=== PATIENT | female | born 1965 | race Hispanic/Latino ===

== ENCOUNTER 2016-11-30 14:11 | Emergency (ER) | payer OTHER ==
--- NOTE | 2016-11-30 15:21 | Emergency Department Report ---
Chief Complaint: Abdominal Pain Stated Complaint: ABD PAIN Time Seen by Provider: 11/30/16 15:06 - HPI History of Present Illness: 51-year-old female presents today with abdominal pain 3 days. Patient has history of colon resection and diverticulitis. Patient has been sent here by Dr. Fermin for a CT scan to rule out intestinal blockage and hernia. Positive for nausea, vomiting, shortness of breath. Denies fever, chills, chest pain. - ROS Review of Systems: Per HPI - Exam Vital Signs: Vital Signs 11/30/16 14:55 Temperature 97.6 F Pulse Rate 87 Respiratory 18 Rate Blood Pressure 153/108 O2 Sat by Pulse 100 Oximetry Physical Exam: General: 52-year-old female in no acute distress. Well-developed, well- nourished. CV: Regular rate and rhythm. Lungs: Clear to auscultation bilaterally. Abdomen: Mass palpated over the left lower quadrant, tender to touch. Positive for guarding. MSE screening note: Focused history and physical exam performed. Due to findings the following was ordered: ED Medical Decision Making - Lab Data Result diagrams: 11/30/16 15:16 ED Disposition for MSE Condition: Stable Instructions: Abdominal Pain (ED)
[2016-11-30 15:27] LABS: Basophils % (Auto) 0.6 % (0.0-1.8); Eosinophils % (Auto) 1.2 % (0.0-4.3); Hematocrit 44.2 % (30.3-42.9); Hemoglobin 14.4 gm/dl (10.1-14.3); Mean Corpuscular HGB Conc 33 % (30-34); Mean Corpuscular Hemoglobin 30 pg (28-32); Mean Corpuscular Volume 92 fl (79-97); Platelet Count 388 K/mm3 (140-440); Red Blood Count 4.82 M/mm3 (3.65-5.03); Red Cell Distribution Width 14.8 % (13.2-15.2); White Blood Count 10.9 K/mm3 (4.5-11.0)
[2016-11-30 15:45] LABS: Amylase 27 units/L (27-131); BUN/Creatinine Ratio 12.85; Blood Urea Nitrogen 9 mg/dL (7-17); Calcium 8.9 mg/dL (8.4-10.2); Carbon Dioxide 25 mmol/L (22-30); Glucose 92 mg/dL (65-100); Lipase 28 units/L (13-60)
[2016-11-30 15:46] LABS: Anion Gap 20 mmol/L; Chloride 101.9 mmol/L (98-107); Potassium 4.1 mmol/L (3.6-5.0); Sodium 143 mmol/L (137-145)
--- NOTE | 2016-11-30 16:02 | Cat Scan Report ---
CT OF THE ABDOMEN AND PELVIS WITHOUT CONTRAST HISTORY: Abdominal pain. TECHNIQUE: Helical CT without contrast. Sagittal and coronal reformatted images. FINDINGS: Within the limits of a noncontrast exam, the abdominal and pelvic viscera are within normal limits. Cholecystectomy changes. The liver, biliary system, pancreas, spleen, kidneys, adrenal glands and bladder are unremarkable. The bowel loops are normal caliber and wall thickness. Normal appendix. The aorta is normal caliber. No ascites, bulky adenopathy or inflammatory changes. The uterus and adnexa are within normal limits. The lung bases are clear. Normal heart size. No suspicious bony lesion. IMPRESSION: Unremarkable noncontrast CT of the abdomen and pelvis.
[2016-11-30 16:21] LABS: Bacteria,Urine 1+ /HPF (Negative); Bilirubin,Urine NEG (Negative); Blood,Urine NEG (Negative); Ketones,Urine TR mg/dL (Negative); Leukocyte Esterase,Urine NEG (Negative); Mucus,Urine 2+ /HPF; Nitrite,Urine NEG (Negative); Protein,Urine <15 mg/dL mg/dL (Negative); Urobilinogen,Urine < 2.0 mg/dL (<2.0)
[2016-11-30] MEDS ORDERED: PERCOCET 5/325 PO ONE (21:52)
[2016-11-30] MEDS ORDERED: ZOFRAN ODT PO ONE (21:52)
--- NOTE | 2016-11-30 22:21 | Emergency Department Report ---
ED Abdominal Pain HPI - General Chief Complaint: Abdominal Pain Stated Complaint: ABD PAIN Time Seen by Provider: 11/30/16 15:06 Source: patient Mode of arrival: Ambulatory Limitations: No Limitations - History of Present Illness Initial Comments: 51-year-old female with a past medical history of diverticulitis requiring colon resection, previous tummy tuck and cholecystectomy presents to the hospital complaining of periumbilical and left-sided abdominal pain intermittent since tummy tuck surgery in September. Patient states she has been wearing a binder which seems to help pain. Patient stopped when a binder last week reports that her abdomen is more distended and she is experiencing more pain. Pain is generalized, sharp, rated 8/10 in intensity. Worse with movement , palpation, and food intake. No alleviating factors. She is not currently taking any medications. Positive nausea without vomiting. Poor by mouth intake reported. Patient sent by PMD Dr. Fermin for workup Severity scale (0 -10): 4 - Related Data Previous Rx's Medication Instructions Recorded Last Taken Type Ondansetron [Zofran Odt] 4 mg PO Q8HR #20 tab.rapdis 11/30/16 Unknown Rx Docusate Sodium [Colace] 100 mg PO BID PRN #20 capsule 12/01/16 Unknown Rx Oxycodone HCl/Acetaminophen 1 each PO Q6HR PRN #20 tablet 12/01/16 Unknown Rx [Percocet 10/325 mg] Polyethylene Glycol 3350 [Miralax 17 gm PO QDAY PRN #10 packet 12/01/16 Unknown Rx 3350] Allergies Allergy/AdvReac Type Severity Reaction Status Date / Time amoxicillin trihydrate Allergy Unknown Verified 04/05/15 04:49 [From Augmentin] onion Allergy Anaphylaxis Verified 04/05/15 04:49 potassium clavulanate Allergy Unknown Verified 04/05/15 04:49 [From Augmentin] ED Review of Systems ROS: Stated complaint: ABD PAIN Other details as noted in HPI Comment: All other systems reviewed and negative Other: Constitutional: No fevers chills Eyes: No eye pain visual changes ENT: No ear pain or throat pain Neck: Denies pain Respiratory: Denies cough wheezing shortness of breath Cardiovascular: Denies chest pain, palpitations, syncope GI: As per HPI : Denies dysuria Musculoskeletal: Denies back pain, joint swelling Skin: Denies rash, lesions, erythema Neurologic: Denies headache, numbness, weakness Psychiatric: Denies suicidal ideation, hallucinations Hematological/lymphatic: Denies easy bruising, lymphadenopathy ED Past Medical Hx - Past Medical History Previous Medical History?: Yes Hx Congestive Heart Failure: No Hx Diabetes: No Hx Asthma: No Hx COPD: No - Surgical History Past Surgical History?: Yes Hx Cholecystectomy: Yes Additional Surgical History: Colon resection, Epigastric surgery, Tummy tuck - Social History Smoking Status: Former Smoker Substance Use Type: Alcohol, Prescribed - Medications Home Medications: Home Medications Medication Instructions Recorded Confirmed Last Taken Type Ondansetron [Zofran Odt] 4 mg PO Q8HR #20 tab.rapdis 11/30/16 Unknown Rx Docusate Sodium [Colace] 100 mg PO BID PRN #20 capsule 12/01/16 Unknown Rx Oxycodone HCl/Acetaminophen 1 each PO Q6HR PRN #20 tablet 12/01/16 Unknown Rx [Percocet 10/325 mg] Polyethylene Glycol 3350 [Miralax 17 gm PO QDAY PRN #10 packet 12/01/16 Unknown Rx 3350] ED Physical Exam - General Limitations: No Limitations - Other Other exam information: General: No limitations, patient is alert in no acute distress Head exam: Atraumatic, normocephalic Eyes exam: Normal appearance, pupils equal reactive to light, extraocular movements intact ENT: Moist mucous membrane, normal oropharynx Neck exam: Normal inspection, full range of motion, no meningismus nontender Respiratory exam: Clear to auscultation bilateral, no wheezes, rales, crackles Cardiovascular: Normal rate and rhythm, normal heart sounds Abdomen: Soft, nondistended, tenderness to. Umbilical left abdomen area. Subcutaneous nodule palpated to the left of the umbilicus without signs of hernia Extremity: Full range of motion normal inspection no deformity Back: Normal Inspection, full range of motion, no tenderness Neurologic: Alert, oriented x3, cranial nerves intact, no motor or sensory deficit Psychiatric: normal affect, normal mood Skin: Warm, dry, intact ED Course Vital Signs 11/30/16 11/30/16 14:55 23:34 Temperature 97.6 F Pulse Rate 87 141 H Respiratory 18 16 Rate Blood Pressure 153/108 O2 Sat by Pulse 100 Oximetry - Reevaluation(s) Reevaluation #1: 02/27/17 22:21 Patient given Percocet and Zofran for pain and nausea Reevaluation #2: 12/01/16 00:03 Patient does have some additional refill after dilaudid ED Medical Decision Making - Lab Data Result diagrams: 11/30/16 15:16 11/30/16 15:16 Lab Results 11/30/16 11/30/16 11/30/16 Range/Units 15:16 15:16 15:39 WBC 10.9 (4.5-11.0) K/mm3 RBC 4.82 (3.65-5.03) M/mm3 Hgb 14.4 H (10.1-14.3) gm/dl Hct 44.2 H (30.3-42.9) % MCV 92 (79-97) fl MCH 30 (28-32) pg MCHC 33 (30-34) % RDW 14.8 (13.2-15.2) % Plt Count 388 (140-440) K/mm3 Lymph % (Auto) 21.6 (13.4-35.0) % Hayes % (Auto) 6.4 (0.0-7.3) % Eos % (Auto) 1.2 (0.0-4.3) % Baso % (Auto) 0.6 (0.0-1.8) % Lymph # 2.4 (1.2-5.4) K/mm3 Hayes # 0.7 (0.0-0.8) K/mm3 Eos # 0.1 (0.0-0.4) K/mm3 Baso # 0.1 (0.0-0.1) K/mm3 Seg Neutrophils % 70.2 H (40.0-70.0) % Seg Neutrophils # 7.6 (1.8-7.7) K/mm3 Sodium 143 (137-145) mmol/L Potassium 4.1 (3.6-5.0) mmol/L Chloride 101.9 (98-107) mmol/L Carbon Dioxide 25 (22-30) mmol/L Anion Gap 20 mmol/L BUN 9 (7-17) mg/dL Creatinine 0.7 (0.7-1.2) mg/dL Estimated GFR > 60 ml/min BUN/Creatinine Ratio 12.85 % Glucose 92 (65-100) mg/dL Calcium 8.9 (8.4-10.2) mg/dL Amylase 27 (27-131) units/L Lipase 28 (13-60) units/L Urine Color Yellow (Yellow) Urine Turbidity Slightly-cloudy (Clear) Urine pH 6.0 (5.0-7.0) Ur Specific Roxana 1.019 (1.003-1.030) Urine Protein <15 mg/dl (Negative) mg/dL Urine Glucose (UA) Neg (Negative) mg/dL Urine Ketones Tr (Negative) mg/dL Urine Blood Neg (Negative) Urine Nitrite Neg (Negative) Urine Bilirubin Neg (Negative) Urine Urobilinogen < 2.0 (<2.0) mg/dL Ur Leukocyte Esterase Neg (Negative) Urine WBC (Auto) 1.0 (0.0-6.0) /HPF Urine RBC (Auto) 1.0 (0.0-6.0) /HPF U Epithel Cells (Auto) 15.0 H (0-13.0) /HPF Urine Bacteria (Auto) 1+ (Negative) /HPF Urine Mucus 2+ /HPF - Radiology Data Radiology results: report reviewed (CT abdomen and pelvis: No acute finding see report) - Medical Decision Making No acute abnormality identified no labs, urine, or CT. Patient was treated symptomatically with pain and nausea and encouraged to follow-up - Differential Diagnosis obstruction, diverticulitis, bowel inflammation Critical Care Time: No Critical care attestation.: If time is entered above; I have spent that time in minutes in the direct care of this critically ill patient, excluding procedure time. ED Disposition Clinical Impression: Abdominal pain, Nausea Disposition: DISCHARGED TO HOME OR SELFCARE Is pt being admited?: No Does the pt Need Aspirin: No Condition: Stable Instructions: Abdominal Pain (ED) Additional Instructions: Take medications as prescribed. Follow-up with the GI doctor and primary care doctor. Return if symptoms worsen Prescriptions: Docusate Sodium [Colace] 100 mg PO BID PRN #20 capsule PRN Reason: Constipation Ondansetron [Zofran Odt] 4 mg PO Q8HR #20 tab.rapdis Oxycodone HCl/Acetaminophen [Percocet 10/325 mg] 1 each PO Q6HR PRN #20 tablet PRN Reason: Pain Polyethylene Glycol 3350 [Miralax 3350] 17 gm PO QDAY PRN #10 packet PRN Reason: Constipation Referrals: PRIMARY CARE, [Primary Care Provider] - 3-5 Days TWILA LOCK MD [Staff Physician] - 3-5 Days Time of Disposition: 00:18
[2016-11-30] MEDS ORDERED: DILAUDID IM ONE (22:50)
[2016-12-01 00:10] VITALS: BP 136/76
== END 2016-12-01 00:02 | disposition home or self-care (01) ==
LOC: ED 14:11
DX: R10.33 Periumbilical pain (principal); R11.0 Nausea; Z87.891 Personal history of nicotine dependence
CPT/HCPCS: 36415; 74176; 80048; 81001; 82150; 83690; 85025; 96372; 99284; J1170; Q0162

== ENCOUNTER 2019-03-21 20:42 | Emergency (ER) | payer SELFPAY ==
--- NOTE | 2019-03-21 21:15 | Event Note ---
ED Screening Note Date of service: 03/21/19 Time: 21:13 ED Screening Note: 54 y/o female c/o serve abd pain that started2 days ago that is getting worst. Admits to N/V. This initial assessment/diagnostic orders/clinical plan/treatment(s) is/are subject to change based on patients health status, clinical progression and re- assessment by fellow clinical providers in the ED. Further treatment and workup at subsequent clinical providers discretion. Patient/guardian urged not to elope from the ED as their condition may be serious if not clinically assessed and managed. Initial orders include:
[2019-03-21 21:47] LABS: Basophils # (Auto) 0.1 K/mm3 (0.0-0.1); Basophils % (Auto) 0.9 % (0.0-1.8); Eosinophils # (Auto) 0.2 K/mm3 (0.0-0.4); Eosinophils % (Auto) 1.7 % (0.0-4.3); Hemoglobin 14.8 gm/dl (10.1-14.3); Lymphocytes # (Auto) 2.2 K/mm3 (1.2-5.4); Lymphocytes % (Auto) 19.9 % (13.4-35.0); Mean Corpuscular HGB Conc 35 % (30-34); Mean Corpuscular Volume 94 fl (79-97); Monocytes # (Auto) 0.7 K/mm3 (0.0-0.8); Monocytes % (Auto) 6.7 % (0.0-7.3); Platelet Count 355 K/mm3 (140-440); Red Blood Count 4.47 M/mm3 (3.65-5.03); Red Cell Distribution Width 13.4 % (13.2-15.2)
[2019-03-21 22:01] LABS: Alanine Aminotransferase 24 units/L (7-56); Albumin 4.2 g/dL (3.9-5); BUN/Creatinine Ratio 17; Blood Urea Nitrogen 15 mg/dL (7-17); Calcium 9.5 mg/dL (8.4-10.2); Hemolysis Index 5
[2019-03-21] MEDS ORDERED: ZOFRAN IV ONE (23:19)
[2019-03-21] MEDS ORDERED: MORPHINE IV ONE (23:19)
[2019-03-21] MEDS ORDERED: NACL 0.9% 1000 ML 1,000 ML IV ONE (23:20)
--- NOTE | 2019-03-21 23:24 | Emergency Department Report ---
ED Abdominal Pain HPI - General Chief Complaint: Abdominal Pain Stated Complaint: DIVERTICULITIS Time Seen by Provider: 03/21/19 23:14 Source: patient Mode of arrival: Wheelchair Limitations: No Limitations - History of Present Illness Initial Comments: Patient is 54 years old female with a history of colon resection and diverticulitis before. Patient presented to the ER complaining of abdominal pain since yesterday. Patient describes her pain as sharp with no radiation. Pain associated with nausea and vomiting. Patient denied any diarrhea, fever or chills. MD Complaint: abdominal pain Location: diffuse Radiation: none Migration to: no migration Severity: moderate Severity scale (0 -10): 6 - Related Data Previous Rx's Medication Instructions Recorded Last Taken Type Ondansetron [Zofran Odt] 4 mg PO Q8HR #20 tab.rapdis 11/30/16 Unknown Rx Docusate Sodium [Colace] 100 mg PO BID PRN #20 capsule 12/01/16 Unknown Rx Oxycodone HCl/Acetaminophen 1 each PO Q6HR PRN #20 tablet 12/01/16 Unknown Rx [Percocet 10/325 mg] Polyethylene Glycol 3350 [Miralax 17 gm PO QDAY PRN #10 packet 12/01/16 Unknown Rx 3350] Allergies Allergy/AdvReac Type Severity Reaction Status Date / Time amoxicillin trihydrate Allergy Unknown Verified 04/05/15 04:49 [From Augmentin] onion Allergy Anaphylaxis Verified 04/05/15 04:49 potassium clavulanate Allergy Unknown Verified 04/05/15 04:49 [From Augmentin] ED Review of Systems ROS: Stated complaint: DIVERTICULITIS Other details as noted in HPI Comment: All other systems reviewed and negative Respiratory: denies: cough, orthopnea, shortness of breath, SOB with exertion Cardiovascular: denies: chest pain, palpitations Gastrointestinal: abdominal pain, nausea, vomiting. denies: diarrhea, constipation, hematemesis, melena, hematochezia Musculoskeletal: denies: back pain Neurological: denies: headache, weakness, numbness, paresthesias, confusion, abn ormal gait ED Past Medical Hx - Past Medical History Previous Medical History?: Yes Hx Hypertension: Yes Hx Congestive Heart Failure: No Hx Diabetes: No Hx Asthma: No Hx COPD: No Additional medical history: diverticulitis - Surgical History Past Surgical History?: Yes Hx Cholecystectomy: Yes Additional Surgical History: Colon resection, Epigastric surgery, Tummy tuck - Social History Smoking Status: Current Some Day Smoker Substance Use Type: Alcohol - Medications Home Medications: Home Medications Medication Instructions Recorded Confirmed Last Taken Type Ondansetron [Zofran Odt] 4 mg PO Q8HR #20 tab.rapdis 11/30/16 Unknown Rx Docusate Sodium [Colace] 100 mg PO BID PRN #20 capsule 12/01/16 Unknown Rx Oxycodone HCl/Acetaminophen 1 each PO Q6HR PRN #20 tablet 12/01/16 Unknown Rx [Percocet 10/325 mg] Polyethylene Glycol 3350 [Miralax 17 gm PO QDAY PRN #10 packet 12/01/16 Unknown Rx 3350] ED Physical Exam - General Limitations: No Limitations General appearance: alert, in no apparent distress - Head Head exam: Present: atraumatic, normocephalic, normal inspection - Eye Eye exam: Present: normal appearance - ENT ENT exam: Present: normal exam, normal orophraynx, mucous membranes moist - Neck Neck exam: Present: normal inspection, full ROM. Absent: tenderness, meningismus, lymphadenopathy, thyromegaly - Respiratory Respiratory exam: Present: normal lung sounds bilaterally - Cardiovascular Cardiovascular Exam: Present: regular rate, normal rhythm, normal heart sounds - GI/Abdominal GI/Abdominal exam: Present: soft, normal bowel sounds. Absent: distended, tenderness, guarding, rebound, rigid, organomegaly, bruit, pulsatile mass - Extremities Exam Extremities exam: Present: normal inspection, full ROM, normal capillary refill - Back Exam Back exam: Present: normal inspection, full ROM. Absent: CVA tenderness (R), CVA tenderness (L), muscle spasm, paraspinal tenderness, vertebral tenderness - Neurological Exam Neurological exam: Present: alert, oriented X3 - Skin Skin exam: Present: warm, intact, normal color ED Course Vital Signs 03/21/19 21:14 Temperature 97.4 F L Pulse Rate 93 H Respiratory 18 Rate Blood Pressure 152/97 O2 Sat by Pulse 97 Oximetry ED Medical Decision Making - Lab Data Result diagrams: 03/21/19 21:19 03/21/19 21:19 - Radiology Data Radiology results: report reviewed - Medical Decision Making Patient is 54 years old female with a history of colon resection and diverticulitis before. Patient presented to the ER complaining of abdominal pain since yesterday. Patient describes her pain as sharp with no radiation. Pain associated with nausea and vomiting. Patient denied any diarrhea, fever or chills. Labs reviewed. CT abdomen and pelvis report reviewed. I discuss with the patient her CT abdomen and pelvis finding and the need to follow-up with a surgeon and given Dr. Pina to follow-up with. Patient has stated that she is feeling much better. No nausea or vomiting. Abdominal pain subsides. Patient also advised to return to the ER if symptoms are not improved. Critical care attestation.: If time is entered above; I have spent that time in minutes in the direct care of this critically ill patient, excluding procedure time. ED Disposition Clinical Impression: Abdominal pain, Ventral hernia Disposition: - TO HOME OR SELFCARE Is pt being admited?: No Condition: Stable Instructions: Abdominal Pain (ED), Ventral Hernia (ED) Referrals: SENA FELICIANO MD [Primary Care Provider] - 3-5 Days SOSA PINA MD [Staff Physician] - 3-5 Days
--- NOTE | 2019-03-22 00:58 | Cat Scan Report ---
PROCEDURE: CT ABDOMEN PELVIS W CON TECHNIQUE: Computerized axial tomography of the abdomen and pelvis was performed after the administr ation of IV iodinated nonionic contrast. CT DOSE LENGTH PRODUCT: mGycm HISTORY: abd pain COMPARISONS: 11/30/2016 . FINDINGS: Visualized lower thorax: No significant abnormality. Liver: Normal in size with slightly diminished attenuation suggesting mild hepatic steatosis.. Spleen: Normal size and attenuation. Gallbladder and biliary system: Cholecystectomy. No evidence of biliary tree dilatation.. Pancreas: Normal. Adrenals: Normal. Kidneys: Both kidneys reveal small cortical cysts measuring up to 1.5 cm in diameter. There is no michael dence of hydronephrosis.. GI tract: The bowel loops are normal in caliber and course. The appendix is not enlarged.. Lymph nodes and mesentery: Normal. Vasculature: Normal.. Bladder: Normal. Reproductive organs: Normal. Peritoneum: No free fluid. Musculoskeletal structures: No significant abnormality. Other: There are multiple small stable midline ventral hernias which contain omental fat. Since prio r study there is also a subcutaneous fluid collection measuring 12.8 x 1.7 x 7 cm in dimension. This compatible with a seroma.. IMPRESSION: Multiple small midline stable ventral hernias containing omental fat. Midline anterior abdominal wall subcutaneous venous fluid collection measuring 12.8 x 1.7 x 7 cm. Den sity measurements suggest this is a seroma. Cholecystectomy. Benign small cysts in both kidneys. No evidence of bowel obstruction or ileus. Mild hepatic steatosis. This document is electronically signed by Tony Roman MD., March 22 2019 12:56:08 AM ET
[2019-03-22] MEDS ORDERED: MORPHINE IV ONE (02:24)
[2019-03-22 02:56] VITALS: BP 134/80
== END 2019-03-22 03:08 | disposition home or self-care (01) ==
LOC: ED 20:42
DX: K43.9 Ventral hernia without obstruction or gangrene (principal); I10 Essential (primary) hypertension; F17.200 Nicotine dependence, unspecified, uncomplicated; Z88.1 Allergy status to other antibiotic agents; Z88.8 Allergy status to other drugs, medicaments and biological substances; Z91.018 Allergy to other foods; Z79.899 Other long term (current) drug therapy; Z90.49 Acquired absence of other specified parts of digestive tract; Z98.890 Other specified postprocedural states
CPT/HCPCS: 36415; 74177; 80053; 83690; 85025; 96361; 96374; 96375; 96376; 99284; J2270; J2405; J7030; Q9967

== ENCOUNTER 2019-03-27 17:09 | Inpatient (IN) | payer BC ==
--- NOTE | 2019-03-27 17:22 | Event Note ---
ED Screening Note Date of service: 03/27/19 Time: 17:18 ED Screening Note: 54 y/o female coming in for worsen abd pain with nausea and vomiting. Was scheduled for surgery tomorrow but has been delayed for insurance reason. This initial assessment/diagnostic orders/clinical plan/treatment(s) is/are subject to change based on patients health status, clinical progression and re- assessment by fellow clinical providers in the ED. Further treatment and workup at subsequent clinical providers discretion. Patient/guardian urged not to elope from the ED as their condition may be serious if not clinically assessed and managed. Initial orders include:
[2019-03-27 17:44] LABS: Basophils # (Auto) 0.1 K/mm3 (0.0-0.1); Basophils % (Auto) 1.4 % (0.0-1.8); Eosinophils # (Auto) 0.1 K/mm3 (0.0-0.4); Eosinophils % (Auto) 0.7 % (0.0-4.3); Lymphocytes # (Auto) 2.3 K/mm3 (1.2-5.4); Lymphocytes % (Auto) 26.2 % (13.4-35.0); Mean Corpuscular HGB Conc 36 % (30-34); Mean Corpuscular Volume 93 fl (79-97); Monocytes # (Auto) 0.8 K/mm3 (0.0-0.8); Monocytes % (Auto) 9.3 % (0.0-7.3); Platelet Count 385 K/mm3 (140-440); Red Cell Distribution Width 13.3 % (13.2-15.2)
[2019-03-27 17:45] LABS: Hematocrit 43.7 % (30.3-42.9); Hemoglobin 15.7 gm/dl (10.1-14.3)
[2019-03-27] MEDS ORDERED: NACL 0.9% 1000 ML 1,000 ML IV ONE ×2 (18:03→21:03)
[2019-03-27] MEDS ORDERED: ZOFRAN IV ONE ×2 (18:03→20:27)
[2019-03-27] MEDS ORDERED: DILAUDID IV ONE ×3 (18:03→20:27)
[2019-03-27 18:09] LABS: Alanine Aminotransferase 30 units/L (7-56); Albumin 4.4 g/dL (3.9-5); BUN/Creatinine Ratio 13; Blood Urea Nitrogen 12 mg/dL (7-17); Calcium 9.5 mg/dL (8.4-10.2); Hemolysis Index 11
--- NOTE | 2019-03-27 18:11 | Emergency Department Report ---
ED Abdominal Pain HPI - General Chief Complaint: Abdominal Pain Stated Complaint: NAUSE/VOMITING Time Seen by Provider: 03/27/19 17:29 Source: patient, old records reviewed Mode of arrival: Ambulatory Limitations: No Limitations - History of Present Illness Initial Comments: 54-year-old female with a past medical history of GERD, hypertension, previous cholecystectomy, tubal ligation, partial colon resection secondary to diverticulitis, and known chronic ventral wall abdominal hernia presents to the hospital complaints of abdominal pain, nausea, vomiting, and by mouth intolerance the past 5 days. Pain is rated 10/10 in intensity, generalized, and greatest in the infraumbilical area. Last bowel movement was 6 days ago. She also complains of intermittent fever with MAXIMUM TEMPERATURE of 100.6. Patient was here on March 21 and evaluated in the ED for abdominal pain. CT abdomen and pelvis showed a stable small ventral hernias containing omental fat but a new anterior abdominal wall subcutaneous venous fluid collection measuring 12.8 x 1.[address] density suggestive of seroma. She was discharged to follow with Dr. Drummond. She attempted to follow-up with Dr. Drummond but he was out of her insurance network. She did follow with Dr. Cezar Caputo and was scheduled for surgery tomorrow morning. However, it was then determined by her insurance that Dr. Cezar Caputo is also out of network and she is attempting to find a surgeon in her insurance network but was told there was not one within 75 miles of [place]. - Related Data Home Medications Medication Instructions Recorded Confirmed Last Taken Cetirizine HCl [Zyrtec 10mg tab] 10 mg PO DAILY 03/27/19 03/27/19 Unknown Metoprolol [Lopressor] 25 mg PO BID 03/27/19 03/27/19 Unknown Montelukast [Singulair] 10 mg PO QPM 03/27/19 03/27/19 Unknown Omeprazole 20 mg PO DAILY 03/27/19 03/27/19 Unknown Simvastatin 20 mg PO DAILY 03/27/19 03/27/19 Unknown hydroCHLOROthiazide [HCTZ] 25 mg PO QDAY 03/27/19 03/27/19 Unknown Previous Rx's Medication Instructions Recorded Last Taken Type HYDROcodone/APAP 5-325 [[place] 1 each PO Q6HR PRN #14 tablet 03/22/19 Unknown Rx 5/325] Allergies Allergy/AdvReac Type Severity Reaction Status Date / Time amoxicillin trihydrate Allergy Unknown Verified 03/27/19 12:08 [From Augmentin] onion Allergy Anaphylaxis Verified 03/27/19 12:08 potassium clavulanate Allergy Unknown Verified 03/27/19 12:08 [From Augmentin] ED Review of Systems ROS: Stated complaint: NAUSE/VOMITING Other details as noted in HPI Comment: All other systems reviewed and negative ED Past Medical Hx - Past Medical History Hx Hypertension: Yes (2015) Hx Diabetes: No Hx GERD: Yes Hx HIV: No Additional medical history: diverticulitis - Surgical History Hx Cholecystectomy: Yes Additional Surgical History: Colon resection, Epigastric surgery, Tummy tuck - Social History Smoking Status: Current Some Day Smoker Substance Use Type: Alcohol - Medications Home Medications: Home Medications Medication Instructions Recorded Confirmed Last Taken Type HYDROcodone/APAP 5-325 [[place] 1 each PO Q6HR PRN #14 tablet 03/22/19 03/27/19 Unknown Rx 5/325] Cetirizine HCl [Zyrtec 10mg tab] 10 mg PO DAILY 03/27/19 03/27/19 Unknown History Metoprolol [Lopressor] 25 mg PO BID 03/27/19 03/27/19 Unknown History Montelukast [Singulair] 10 mg PO QPM 03/27/19 03/27/19 Unknown History Omeprazole 20 mg PO DAILY 03/27/19 03/27/19 Unknown History Simvastatin 20 mg PO DAILY 03/27/19 03/27/19 Unknown History hydroCHLOROthiazide [HCTZ] 25 mg PO QDAY 03/27/19 03/27/19 Unknown History ED Physical Exam - General Limitations: No Limitations - Other Other exam information: General: No limitations, patient is alert in no acute distress Head exam: Atraumatic, normocephalic Eyes exam: Normal appearance, nonicteric sclerae ENT: Moist mucous membrane, normal oropharynx Neck exam: Normal inspection, full range of motion Respiratory exam: Clear to auscultation bilateral, no wheezes, rales, crackles Cardiovascular: Normal rate and rhythm, normal heart sounds Abdomen: Soft, nondistended, lysed and is greatest at the infraumbilical abdominal wall with swelling palpated, with normal bowel sounds, no rebound, or guarding Extremity: Full range of motion normal inspection no deformity Back: Normal Inspection, full range of motion, no tenderness Neurologic: Alert, oriented x3, cranial nerves intact, no motor or sensory deficit Psychiatric: normal affect, normal mood Skin: Warm, dry, intact ED Course Vital Signs 03/27/19 03/27/19 03/27/19 17:17 17:55 18:01 Temperature 98.3 F Pulse Rate 95 H Respiratory 18 Rate Blood Pressure 149/102 154/92 154/92 O2 Sat by Pulse 95 98 97 Oximetry 03/27/19 03/27/19 03/27/19 18:31 19:01 19:31 Temperature Pulse Rate Respiratory Rate Blood Pressure 154/92 154/92 154/92 O2 Sat by Pulse 96 97 98 Oximetry 03/27/19 03/27/19 03/27/19 20:38 21:00 21:31 Temperature Pulse Rate 72 66 Respiratory 15 23 Rate Blood Pressure 144/83 147/78 150/96 O2 Sat by Pulse 94 95 87 Oximetry 03/27/19 03/27/19 03/27/19 22:00 22:31 23:01 Temperature Pulse Rate 80 71 73 Respiratory 15 12 13 Rate Blood Pressure 151/88 151/88 131/70 O2 Sat by Pulse 91 96 95 Oximetry 03/27/19 03/27/19 03/27/19 23:05 23:31 23:39 Temperature 98.0 F Pulse Rate 62 66 Respiratory 11 L 15 Rate Blood Pressure 131/70 131/70 O2 Sat by Pulse 95 95 Oximetry 03/28/19 00:00 Temperature Pulse Rate 66 Respiratory 31 H Rate Blood Pressure 136/78 O2 Sat by Pulse 92 Oximetry - Reevaluation(s) Reevaluation #1: 03/27/19 23:00 pt's o2 sat dropped to 77 while sleeping. I woke her up and encouraged her to take deep breaths and sat incr to 94% on RA. Pt has received many sedating meds. She snores at baseline and a states her pmd has recommended a sleep stuy in [facility]. Pt placed on 2L o2. - Consultations Consultation #1: 03/27/19 18:10 case d/w DR Yrn Caputo, request [employer] surgeon to manage case. 03/27/19 22:47 Case discussed with gen surgeon [employer] Dr. Galvan when CT resulted. Informed patient will require admission due to continued GI symptoms. No signs of obstruction. Persistent seroma. Will consult. ED Medical Decision Making - Lab Data Result diagrams: 03/27/19 17:29 03/27/19 17:29 Lab Results 03/27/19 03/27/19 03/27/19 Range/Units 17:29 17:29 17:29 WBC 8.9 (4.5-11.0) K/mm3 RBC 4.70 (3.65-5.03) M/mm3 Hgb 15.7 H (10.1-14.3) gm/dl Hct 43.7 H (30.3-42.9) % MCV 93 (79-97) fl MCH 33 H (28-32) pg MCHC 36 H (30-34) % RDW 13.3 (13.2-15.2) % Plt Count 385 (140-440) K/mm3 Lymph % (Auto) 26.2 (13.4-35.0) % [place] % (Auto) 9.3 H (0.0-7.3) % Eos % (Auto) 0.7 (0.0-4.3) % Baso % (Auto) 1.4 (0.0-1.8) % Lymph # 2.3 (1.2-5.4) K/mm3 [place] # 0.8 (0.0-0.8) K/mm3 Eos # 0.1 (0.0-0.4) K/mm3 Baso # 0.1 (0.0-0.1) K/mm3 Seg Neutrophils % 62.4 (40.0-70.0) % Seg Neutrophils # 5.5 (1.8-7.7) K/mm3 Sodium 136 L (137-145) mmol/L Potassium 3.1 L (3.6-5.0) mmol/L Chloride 91.8 L (98-107) mmol/L Carbon Dioxide 26 (22-30) mmol/L Anion Gap 21 mmol/L BUN 12 (7-17) mg/dL Creatinine 0.9 (0.7-1.2) mg/dL Estimated GFR > 60 ml/min BUN/Creatinine Ratio 13 % Glucose 112 H (65-100) mg/dL Calcium 9.5 (8.4-10.2) mg/dL Magnesium 2.10 (1.7-2.3) mg/dL Total Bilirubin 0.50 (0.1-1.2) mg/dL AST 28 (5-40) units/L ALT 30 (7-56) units/L Alkaline Phosphatase 106 (35-129) units/L Total Protein 8.1 (6.3-8.2) g/dL Albumin 4.4 (3.9-5) g/dL Albumin/Globulin Ratio 1.2 % - Radiology Data Radiology results: report reviewed PROCEDURE: CT ABDOMEN PELVIS W CON TECHNIQUE: Computerized axial tomography of the abdomen and pelvis was performed after the administration of IV iodinated nonionic contrast. CT DOSE LENGTH PRODUCT: 3687.1 mGycm HISTORY: periumbilical ventral hernia, abd pain, seroma, COMPARISONS: 03/21/2019 . FINDINGS: Visualized lower thorax: No significant abnormality. Liver: Normal size and attenuation. Spleen: Normal size and attenuation. Gallbladder and biliary system: There has been cholecystectomy. Dilatation of the common bile duct is likely related to prior cholecystectomy. Pancreas: Normal. Adrenals: Normal. Kidneys: Bilateral stable renal cysts. No hydronephrosis. GI tract: No appendiceal inflammation. There are sutures in the proximal sigmoid colon. No bowel obstruction or inflammation. Lymph nodes and mesentery: Normal. Vasculature: Normal.. Bladder: Normal. Reproductive organs: Grossly unremarkable. Peritoneum: No free fluid. Musculoskeletal structures: No significant abnormality. Other: There is again seen an anterior abdominal wall fluid collection with peripheral enhancement, just inferior to the umbilicus. This measures 13.9 cm transverse x 6.7 cm craniocaudal x 2.0 cm AP. The anterior wall of the fluid collection is 1.4 cm deep to the skin surface. The posterior wall is 3 cm deep to the skin surface. IMPRESSION: Anterior abdominal wall fluid collection with peripheral enhancement. This could be related to a seroma, however cannot exclude superimposed infection/abscess. Correlate for signs of infection - Medical Decision Making No signs of obstruction or intra-abdominal infection. Persistent seroma noted. Patient continues to have nausea, vomiting, and pain despite multiple meds in the ED. Case discussed with on-call surgeon who will consult in house. Dr. Patterson hospitalist informed for admission. IV kcl initiated in ed, npo - Differential Diagnosis seroma, obstruction, diverticulitis, abscess Critical Care Time: No Critical care attestation.: If time is entered above; I have spent that time in minutes in the direct care of this critically ill patient, excluding procedure time. ED Disposition Clinical Impression: Ventral hernia, Abdominal pain, Abdominal wall seroma, Intractable nausea and vomiting, Hypokalemia Disposition: OP ADMIT IP TO THIS HOSP Is pt being admited?: Yes Condition: Stable Time of Disposition: 22:51 (Dr Patterson/hosp)
[2019-03-27] MEDS ORDERED: ZOFRAN ONE (20:31)
[2019-03-27] MEDS: KCL 10MEQ/100ML 10 MEQ/100 ML BAG IV SCH ×2 (21:41→23:10)
[2019-03-27] MEDS ORDERED: BENADRYL IV ONE (22:15)
[2019-03-27] MEDS ORDERED: REGLAN IV ONE (22:15)
--- NOTE | 2019-03-27 22:22 | Cat Scan Report ---
PROCEDURE: CT ABDOMEN PELVIS W CON TECHNIQUE: Computerized axial tomography of the abdomen and pelvis was performed after the administr ation of IV iodinated nonionic contrast. CT DOSE LENGTH PRODUCT: 3687.1 mGycm HISTORY: periumbilical ventral hernia, abd pain, seroma, COMPARISONS: 03/21/2019 . FINDINGS: Visualized lower thorax: No significant abnormality. Liver: Normal size and attenuation. Spleen: Normal size and attenuation. Gallbladder and biliary system: There has been cholecystectomy. Dilatation of the common bile duct is likely related to prior cholecystectomy. Pancreas: Normal. Adrenals: Normal. Kidneys: Bilateral stable renal cysts. No hydronephrosis. GI tract: No appendiceal inflammation. There are sutures in the proximal sigmoid colon. No bowel obs truction or inflammation. Lymph nodes and mesentery: Normal. Vasculature: Normal.. Bladder: Normal. Reproductive organs: Grossly unremarkable. Peritoneum: No free fluid. Musculoskeletal structures: No significant abnormality. Other: There is again seen an anterior abdominal wall fluid collection with peripheral enhancement, just inferior to the umbilicus. This measures 13.9 cm transverse x 6.7 cm craniocaudal x 2.0 cm AP. T he anterior wall of the fluid collection is 1.4 cm deep to the skin surface. The posterior wall is 3 cm deep to the skin surface. IMPRESSION: Anterior abdominal wall fluid collection with peripheral enhancement. This could be related to a sero ma, however cannot exclude superimposed infection/abscess. Correlate for signs of infection This document is electronically signed by Zakia Moya MD., March 27 2019 10:21:02 PM ET
[2019-03-27] MEDS ORDERED: TYLENOL PO PRN (23:31)
[2019-03-27] MEDS ORDERED: SODIUM CHLORIDE FLUSH SYRINGE 10 ML IV PRN (23:31)
--- NOTE | 2019-03-27 23:33 | History and Physical Report ---
History of Present Illness Date of examination: 03/27/19 History of present illness: 54-year-old woman with a history of cervical cancer, GERD, diverticulosis comes to the ER complaining of abdominal pain located in the lower abdomen area which she describes as a dull/sharp pain, intermittent in nature, intensity 5/10, no radiation. Also complaining of unable to tolerate oral intake since Wednesday Review of systems Constitutional: no weight loss, chills, fever Ears, eyes, nose, mouth and throat: no nasal congestion, no nasal discharge, no sinus pressure, no vision change, no red eye. Neck: No neck pain or rigidity. Cardiovascular: no palpitations, chest pain Respiratory: no cough, shortness of breath Gastrointestinal: no hematochezia Genitourinary : no frequency , no hematuria Musculoskeletal: no joint swelling or muscle ache Integumentary: no rash, no pruritis Neurological: no parathesias, no focal weakness Endocrine: no cold or heat intolerance, no polyuria or polydipsia Hematologic/Lymphatic: no easy bruising, no easy bleeding, no gland swelling Allergic/Immunologic: no urticaria, no angioedema. PAST MEDICAL HISTORY:cervical cancer, GERD, diverticulosis PAST SURGICAL HISTORY: Tonsillectomy, colon resection, cholecystectomy, surgery on toe SOCIAL HISTORY: Smokes half a pack a day, no alcohol or drug use FAMILY HISTORY: Hypertension Medications and Allergies Allergies Allergy/AdvReac Type Severity Reaction Status Date / Time amoxicillin trihydrate Allergy Unknown Verified 03/27/19 12:08 [From Augmentin] onion Allergy Anaphylaxis Verified 03/27/19 12:08 potassium clavulanate Allergy Unknown Verified 03/27/19 12:08 [From Augmentin] Home Medications Medication Instructions Recorded Confirmed Last Taken Type Cetirizine HCl [Zyrtec 10mg tab] 10 mg PO DAILY 03/27/19 03/27/19 Unknown Hi story Metoprolol [Lopressor TAB] 25 mg PO BID 03/27/19 03/27/19 Unknown History Montelukast [Singulair] 10 mg PO QPM 03/27/19 03/27/19 Unknown History Omeprazole 20 mg PO DAILY 03/27/19 03/27/19 Unknown History Simvastatin 20 mg PO DAILY 03/27/19 03/27/19 Unknown History hydroCHLOROthiazide [HCTZ] 25 mg PO QDAY 03/27/19 03/27/19 Unknown History HYDROcodone/APAP 5-325 [[place] 1 each PO Q6HR PRN #14 tablet 03/29/19 Unknown Rx 5-325 mg TAB] Active Meds: Active Medications Acetaminophen (Tylenol) 650 mg PO Q4H PRN PRN Reason: Pain MILD(1-3)/Fever >100.5/PUENTES Enoxaparin Sodium (Lovenox) 30 mg SUB-Q QDAY RANCHO Sodium Chloride (Nacl 0.45% 1000 Ml) 1,000 mls @ 75 mls/hr IV DIRECT RANCHO Morphine Sulfate (Morphine) 2 mg IV Q4H PRN PRN Reason: Pain, Moderate (4-6) Ondansetron HCl (Zofran) 4 mg IV Q4H PRN PRN Reason: Nausea And Vomiting Sodium Chloride (Sodium Chloride Flush Syringe 10 Ml) 10 ml IV BID RANCHO Sodium Chloride (Sodium Chloride Flush Syringe 10 Ml) 10 ml IV PRN PRN PRN Reason: LINE FLUSH Exam - Physical Exam Narrative exam: General Apperance: The patient lying in bed, breathing comfortable HEENT: Normocephalic, atraumatic. Pupils equally round and reactive to light, EOMI, no sclericterus or JVD or thyromegaly or nodule. , no carotid bruit, mucous membranes moist, no exudate or erythema Heart: S1-S2, regular is rhythm Lungs: Clear to auscultation bilaterally, breathing comfortable Abdomen: Positive bowel sounds, soft, tender in mid lower abdomen, nondistended, no organomegaly Extremities: No edema cyanosis clubbing Skin: no rash, nodule, warm and dry Neuro: cranial nerves 2-12 intact, speech is fluent, motor/sensory intact - Constitutional Vitals: Temp Pulse Resp BP Pulse Ox 98.3 F 73 13 131/70 95 03/27/19 17:17 03/27/19 23:01 03/27/19 23:01 03/27/19 23:01 03/27/19 23:01 Results - Labs CBC & Chem 7: 03/28/19 09:12 03/28/19 09:12 Labs: Abnormal lab results 03/27/19 03/27/19 Range/Units 17:29 17:29 Hgb 15.7 H (10.1-14.3) gm/dl Hct 43.7 H (30.3-42.9) % MCH 33 H (28-32) pg MCHC 36 H (30-34) % [place] % (Auto) 9.3 H (0.0-7.3) % Sodium 136 L (137-145) mmol/L Potassium 3.1 L (3.6-5.0) mmol/L Chloride 91.8 L (98-107) mmol/L Glucose 112 H (65-100) mg/dL - Imaging and Cardiology CT scan - abdomen: report reviewed CT scan - pelvis: report reviewed Assessment and Plan Assessment Abdominal wall seroma Intractable nausea and vomiting cervical cancer GERD diverticulosis Plan Admit to medicine place on bowel rest, IV fluid, IV morphine Consult surgery DVT prophylaxis
[2019-03-28] MEDS: KCL 10MEQ/100ML 10 MEQ/100 ML BAG IV SCH ×2 (00:15→01:11)
[2019-03-28] MEDS ORDERED: KCL 10MEQ/100ML 10 MEQ/100 ML BAG IV ONE (01:09)
[2019-03-28] MEDS: MORPHINE IV PRN ×6 (01:12→23:41)
[2019-03-28] MEDS ORDERED: NACL 0.9% 250ML 250 ML IV ONE (01:36)
[2019-03-28 02:42] LABS: Bacteria,Urine 1+ /HPF (Negative); Bilirubin,Urine NEG (Negative); Blood,Urine NEG (Negative); Color,Urine Yellow (Yellow); Mucus,Urine FEW /HPF; Protein,Urine <15 mg/dL mg/dL (Negative); Urobilinogen,Urine < 2.0 mg/dL (<2.0)
[2019-03-28] MEDS: ZOFRAN IV PRN ×3 (05:26→23:44)
[2019-03-28] MEDS ORDERED: LOVENOX SUB-Q SCH (10:00)
[2019-03-28 10:04] LABS: Basophils # (Auto) 0.1 K/mm3 (0.0-0.1); Basophils % (Auto) 0.8 % (0.0-1.8); Eosinophils # (Auto) 0.1 K/mm3 (0.0-0.4); Eosinophils % (Auto) 1.6 % (0.0-4.3); Hematocrit 40.5 % (30.3-42.9); Hemoglobin 14.1 gm/dl (10.1-14.3); Lymphocytes % (Auto) 29.3 % (13.4-35.0); Mean Corpuscular HGB Conc 35 % (30-34); Mean Corpuscular Volume 95 fl (79-97); Monocytes # (Auto) 0.6 K/mm3 (0.0-0.8); Monocytes % (Auto) 8.9 % (0.0-7.3); Platelet Count 278 K/mm3 (140-440); Red Blood Count 4.27 M/mm3 (3.65-5.03); Red Cell Distribution Width 13.3 % (13.2-15.2)
[2019-03-28 10:15] LABS: BUN/Creatinine Ratio 11; Blood Urea Nitrogen 8 mg/dL (7-17); Calcium 8.4 mg/dL (8.4-10.2); Hemolysis Index 25
[2019-03-28] MEDS: SODIUM CHLORIDE FLUSH SYRINGE 10 ML IV SCH ×2 (10:47→22:32)
--- NOTE | 2019-03-28 14:17 | Consultation ---
History of Present Illness Consult date: 03/28/19 Reason for consult: abdominal pain Chief complaint: abdominal pain, n/v - History of present illness History of present illness: 54 yo F with hx of multiple abdominal surgeries including laparoscopic chol ecystectomy, tubal ligation, tummy tuck, sigmoidectomy presents with c/o lower abdominal pain and fullness, n/v x 2 weeks. She states the pain is sharp and intermittent. It is localized to the periumbilical area and below the umbilicus. No exacerbating or alleviating factors. This pain is associated with nausea and nonbloody/nonbilious emesis. She presented to the ER several weeks ago and was told she had a hernia on CT scan. She was referred to a surgeon who was not in network with her insurance and so she was referred to another surgeon. She was apparently scheduled for surgery today but states the pain, n/v got so bad last night that she decided to come to the ER. She denies f/c, cp, sob. Nausea and pain are better today with medications. She has not had a BM in 4 days but attributes that to not really being able to eat. Past History Past Medical History: hypertension Past Surgical History: cholecystectomy, bowel surgery (sigmoidectomy for diverticulitis), Other (foot surgery, tummy tuck, tubal ligation) Social history: smoking (occasional ), alcohol abuse (social) Family history: other (brain aneurysm - father) Medications and Allergies Allergies Allergy/AdvReac Type Severity Reaction Status Date / Time amoxicillin trihydrate Allergy Unknown Verified 03/27/19 12:08 [From Augmentin] onion Allergy Anaphylaxis Verified 03/27/19 12:08 potassium clavulanate Allergy Unknown Verified 03/27/19 12:08 [From Augmentin] Home Medications Medication Instructions Recorded Confirmed Last Taken Type HYDROcodone/APAP 5-325 [[place] 1 each PO Q6HR PRN #14 tablet 03/22/19 03/27/19 Unknown Rx 5/325] Cetirizine HCl [Zyrtec 10mg tab] 10 mg PO DAILY 03/27/19 03/27/19 Unknown History Metoprolol [Lopressor] 25 mg PO BID 03/27/19 03/27/19 Unknown History Montelukast [Singulair] 10 mg PO QPM 03/27/19 03/27/19 Unknown History Omeprazole 20 mg PO DAILY 03/27/19 03/27/19 Unknown History Simvastatin 20 mg PO DAILY 03/27/19 03/27/19 Unknown History hydroCHLOROthiazide [HCTZ] 25 mg PO QDAY 03/27/19 03/27/19 Unknown History Active Meds: Active Medications Acetaminophen (Tylenol) 650 mg PO Q4H PRN PRN Reason: Pain MILD(1-3)/Fever >100.5/PUENTES Enoxaparin Sodium (Lovenox) 40 mg SUB-Q QDAY@1000 RANCHO Sodium Chloride (Nacl 0.45% 1000 Ml) 1,000 mls @ 75 mls/hr IV DIRECT RANCHO Morphine Sulfate (Morphine) 2 mg IV Q4H PRN PRN Reason: Pain, Moderate (4-6) Last Admin: 03/28/19 11:29 Dose: 2 mg Documented by: Ondansetron HCl (Zofran) 4 mg IV Q4H PRN PRN Reason: Nausea And Vomiting Last Admin: 03/28/19 11:28 Dose: 4 mg Documented by: Sodium Chloride (Sodium Chloride Flush Syringe 10 Ml) 10 ml IV BID RANCHO Last Admin: 03/28/19 10:47 Dose: 10 ml Documented by: Sodium Chloride (Sodium Chloride Flush Syringe 10 Ml) 10 ml IV PRN PRN PRN Reason: LINE FLUSH Review of Systems All systems: negative (10 pt ROS performed and negative except for that listed in HPI) Exam Vital Signs Temp Pulse Resp BP Pulse Ox 98.3 F 95 H 18 149/102 95 03/27/19 17:17 03/27/19 17:17 03/27/19 17:17 03/27/19 17:17 03/27/19 17:17 Narrative exam: Gen: AAOx3. NAD ENT: no scleral icterus or conjunctival pallor CV: s1, S2+ Resp: even and unlabored Abd: soft, NT, TTP along lower abdominal incision with fullness in the center. No skin changes. Hernia is reducible Ext: no c/c/e Results - Labs 03/28/19 09:12 03/28/19 09:12 Abnormal lab results 03/27/19 03/27/19 03/28/19 Range/Units 17:29 17:29 02:06 Hgb 15.7 H (10.1-14.3) gm/dl Hct 43.7 H (30.3-42.9) % MCH 33 H (28-32) pg MCHC 36 H (30-34) % [place] % (Auto) 9.3 H (0.0-7.3) % Sodium 136 L (137-145) mmol/L Potassium 3.1 L (3.6-5.0) mmol/L Chloride 91.8 L (98-107) mmol/L Glucose 112 H (65-100) mg/dL Ur Specific [place] >= 1.060 H (1.003-1.030) U Epithel Cells (Auto) 25.0 H (0-13.0) /HPF 03/28/19 03/28/19 Range/Units 09:12 09:12 Hgb (10.1-14.3) gm/dl Hct (30.3-42.9) % MCH 33 H (28-32) pg MCHC 35 H (30-34) % [place] % (Auto) 8.9 H (0.0-7.3) % Sodium (137-145) mmol/L Potassium 3.3 L (3.6-5.0) mmol/L Chloride (98-107) mmol/L Glucose (65-100) mg/dL Ur Specific [place] (1.003-1.030) U Epithel Cells (Auto) (0-13.0) /[facility] Diabetes panel 03/27/19 03/28/19 Range/Units 17:29 09:12 Sodium 136 L 138 (137-145) mmol/L Potassium 3.1 L 3.3 L (3.6-5.0) mmol/L Chloride 91.8 L 100.6 (98-107) mmol/L Carbon Dioxide 26 26 (22-30) mmol/L BUN 12 8 (7-17) mg/dL Creatinine 0.9 0.7 (0.7-1.2) mg/dL Glucose 112 H 93 (65-100) mg/dL Calcium 9.5 8.4 (8.4-10.2) mg/dL AST 28 (5-40) units/L ALT 30 (7-56) units/L Alkaline Phosphatase 106 (35-129) units/L Total Protein 8.1 (6.3-8.2) g/dL Albumin 4.4 (3.9-5) g/dL Calcium panel 03/27/19 03/28/19 Range/Units 17:29 09:12 Calcium 9.5 8.4 (8.4-10.2) mg/dL Albumin 4.4 (3.9-5) g/dL Pituitary panel 03/27/19 03/28/19 Range/Units 17:29 09:12 Sodium 136 L 138 (137-145) mmol/L Potassium 3.1 L 3.3 L (3.6-5.0) mmol/L Chloride 91.8 L 100.6 (98-107) mmol/L Carbon Dioxide 26 26 (22-30) mmol/L BUN 12 8 (7-17) mg/dL Creatinine 0.9 0.7 (0.7-1.2) mg/dL Glucose 112 H 93 (65-100) mg/dL Calcium 9.5 8.4 (8.4-10.2) mg/dL Adrenal panel 03/27/19 03/28/19 Range/Units 17:29 09:12 Sodium 136 L 138 (137-145) mmol/L Potassium 3.1 L 3.3 L (3.6-5.0) mmol/L Chloride 91.8 L 100.6 (98-107) mmol/L Carbon Dioxide 26 26 (22-30) mmol/L BUN 12 8 (7-17) mg/dL Creatinine 0.9 0.7 (0.7-1.2) mg/dL Glucose 112 H 93 (65-100) mg/dL Calcium 9.5 8.4 (8.4-10.2) mg/dL Total Bilirubin 0.50 (0.1-1.2) mg/dL AST 28 (5-40) units/L ALT 30 (7-56) units/L Alkaline Phosphatase 106 (35-129) units/L Total Protein 8.1 (6.3-8.2) g/dL Albumin 4.4 (3.9-5) g/dL - Imaging CT scan - abdomen: report reviewed, image reviewed CT scan - pelvis: report reviewed, image reviewed Assessment and Plan 54 yo F with 1. subcutaneous fluid collection 2. ventral hernia 3. abd pain 4. n/v Plan: Currently the patient is stable. Hernia is reducible and there is no evidence of bowel involvement or obstruction on CT. Would address fluid collection first as this may be the primary reason for her abdominal pain. Unsure if this is reason for n/v, may be more pain related. 1. IR consult for drainage of abdominal subcutaneous fluid collection 2. would obtain cultures of fluid obtained from collection 3. prn nausea and pain control 4. ok to start full liquid diet if no procedure is planned today 5. Elective hernia repair as an outpatient. The first priority is to address flu id collection and ensure it is not infected before proceeding with hernia repair with mesh. I explained this to patient and her . They understand and are agreeable with plan. Thank you, please call with questions.
[2019-03-28] MEDS: LOVENOX SUB-Q SCH (14:53)
[2019-03-28] MEDS: NACL 0.45% 1000 ML 1,000 ML IV SCH (19:35)
[2019-03-29] MEDS ORDERED: VERSED IV ONE (08:57)
[2019-03-29] MEDS ORDERED: SUBLIMAZE IV ONE (08:57)
--- NOTE | 2019-03-29 10:00 | Consultation ---
History of Present Illness - Reason for Consult Consult date: 03/29/19 abdominal fluid collection - History of Present Illness Patient with a history of an abdominal wall fluid collection. The patient has had multiple abdominal surgeries including tummy tuck. She complains of hardening in the soft tissues just above the incision line. CT scan was reviewed which reveals a simple fluid collection in the soft tissues. Past History Past Medical History: hypertension Past Surgical History: cholecystectomy, bowel surgery (sigmoidectomy for diverticulitis), Other (foot surgery, tummy tuck, tubal ligation) Social history: smoking (occasional ), alcohol abuse (social) Family history: other (brain aneurysm - father) Medications and Allergies Allergies Allergy/AdvReac Type Severity Reaction Status Date / Time amoxicillin trihydrate Allergy Unknown Verified 03/27/19 12:08 [From Augmentin] onion Allergy Anaphylaxis Verified 03/27/19 12:08 potassium clavulanate Allergy Unknown Verified 03/27/19 12:08 [From Augmentin] Home Medications Medication Instructions Recorded Confirmed Last Taken Type HYDROcodone/APAP 5-325 [[place] 1 each PO Q6HR PRN #14 tablet 03/22/19 03/27/19 Unknown Rx 5/325] Cetirizine HCl [Zyrtec 10mg tab] 10 mg PO DAILY 03/27/19 03/27/19 Unknown History Metoprolol [Lopressor] 25 mg PO BID 03/27/19 03/27/19 Unknown History Montelukast [Singulair] 10 mg PO QPM 03/27/19 03/27/19 Unknown History Omeprazole 20 mg PO DAILY 03/27/19 03/27/19 Unknown History Simvastatin 20 mg PO DAILY 03/27/19 03/27/19 Unknown History hydroCHLOROthiazide [HCTZ] 25 mg PO QDAY 03/27/19 03/27/19 Unknown History Active Meds: Active Medications Acetaminophen (Tylenol) 650 mg PO Q4H PRN PRN Reason: Pain MILD(1-3)/Fever >100.5/PUENTES Enoxaparin Sodium (Lovenox) 40 mg SUB-Q QDAY@1000 RANCHO Last Admin: 03/28/19 14:53 Dose: Not Given Documented by: Sodium Chloride (Nacl 0.45% 1000 Ml) 1,000 mls @ 75 mls/hr IV DIRECT RANCHO Last Admin: 03/28/19 19:35 Dose: 75 mls/hr Documented by: Morphine Sulfate (Morphine) 2 mg IV Q4H PRN PRN Reason: Pain, Moderate (4-6) Last Admin: 03/28/19 23:41 Dose: 2 mg Documented by: Ondansetron HCl (Zofran) 4 mg IV Q4H PRN PRN Reason: Nausea And Vomiting Last Admin: 03/28/19 23:44 Dose: 4 mg Documented by: Sodium Chloride (Sodium Chloride Flush Syringe 10 Ml) 10 ml IV BID RANCHO Last Admin: 03/28/19 22:32 Dose: 10 ml Documented by: Sodium Chloride (Sodium Chloride Flush Syringe 10 Ml) 10 ml IV PRN PRN PRN Reason: LINE FLUSH Review of Systems All systems: negative Exam - Constitutional Vitals: Temp Pulse Resp BP Pulse Ox 97.6 F 78 18 136/84 98 03/29/19 09:15 03/29/19 09:15 03/29/19 09:15 03/29/19 09:15 03/29/19 09:15 General appearance: Present: no acute distress - EENT Eyes: Present: EOM intact ENT: hearing intact - Neck Neck: Present: supple, normal ROM - Respiratory Respiratory effort: normal - Cardiovascular Rhythm: regular - Extremities Extremities: no ischemia - Abdominal General gastrointestinal: Present: soft, non-tender - Rectal Rectal Exam: deferred - Psychiatric Psychiatric: appropriate mood/affect, cooperative Results - Labs CBC & Chem 7: 03/28/19 09:12 03/28/19 09:12 Labs: Abnormal lab results 03/28/19 03/28/19 Range/Units 09:12 09:12 MCH 33 H (28-32) pg MCHC 35 H (30-34) % [place] % (Auto) 8.9 H (0.0-7.3) % Potassium 3.3 L (3.6-5.0) mmol/L - Imaging and Cardiology CT scan - abdomen: image reviewed Assessment and Plan Patient will be scheduled for CT-guided aspiration versus placement of drainage catheter pending upon the contents of the fluid. Fluid will be sent for culture.
--- NOTE | 2019-03-29 10:26 | Cat Scan Report ---
Exam: CT-guided drainage of abdominal fluid collection Clinical indication: Patient with abdominal fluid collection and abdominal pain. History of multiple prior abdominal surgeries Date: 03/29/2019 Procedure: Following an explanation of the risks, benefits and alternatives; written informed consent was obtained. The patient was put to the CT suite and placed in supine position on the gantry. Initial translator deaf images of the abdomen was performed and an appropriate access site chosen along the midline anterior abdominal wall. Patient's abdomen was prepped and draped in usual sterile fashion. 1% lidocaine was used for anesthesia. Using intermittent CT guidance, a 10 cm 17-gauge trocar needle was advanced into the central aspect of the fluid collection. The trocar was removed and a total of 50 mL's of clear serosanguineous fluid was aspirated. A sample was sent for laboratory analysis. Post aspiration imaging demonstrated reduction of the fluid collection. The needle was removed and a sterile dressing applied. The patient tolerated the procedure well. There were no immediate post procedure complications. Conscious sedation was performed with the guidance of radiologic nursing. Continuous cardiopulmonary monitoring was utilized. Impression: CT-guided drainage of abdominal fluid collection with 50 mL's of clear serosanguineous fluid aspirated. The contents appear to be seroma and noninfected. A sample was sent for laboratory analysis.
[2019-03-29] MEDS: NACL 0.45% 1000 ML 1,000 ML IV SCH (10:38)
[2019-03-29] MEDS: LOVENOX SUB-Q SCH (10:42)
[2019-03-29] MEDS: SODIUM CHLORIDE FLUSH SYRINGE 10 ML IV SCH (10:42)
--- NOTE | 2019-03-29 12:53 | Progress Note ---
Assessment and Plan Abdominal wall seroma Intractable nausea and vomiting cervical cancer GERD diverticulosis Ventral Hernia Plan 1. IR consult for drainage of abdominal subcutaneous fluid collection 2. would obtain cultures of fluid obtained from collection 3. prn nausea and pain control 4. Full liquid diet 5. Elective hernia repair as an outpatient. The first priority is to address fluid collection and ensure it is not infected before proceeding with hernia repair with mesh. I explained this to patient and her . They understand and are agreeable with plan. Subjective Date of service: 03/28/19 Principal diagnosis: Abdominal wall seroma Interval history: 54-year-old woman with a history of cervical cancer, GERD, diverticulosis comes to the ER complaining of abdominal pain located in the lower abdomen area which she describes as a dull/sharp pain, intermittent in nature, intensity 5/10, no radiation. Also complaining of unable to tolerate oral intake since Wednesday Objective - Constitutional Vitals: Vital Signs - 12hr 03/29/19 03/29/19 03/29/19 05:13 08:34 09:15 Temperature 97.9 F Temperature [ Intra-Procedure ] Temperature [ Post-Procedure] Temperature [ 97.6 F Pre-Procedure] Pulse Rate 72 Pulse Rate [ Intra-Procedure ] Pulse Rate [ Post-Procedure] Pulse Rate [Pre 78 -Procedure] Respiratory 22 Rate Respiratory Rate [Intra- Procedure] Respiratory Rate [Post- Procedure] Respiratory 18 Rate [Pre- Procedure] Blood Pressure 132/79 Blood Pressure [Intra- Procedure] Blood Pressure [Post-Procedure ] Blood Pressure 136/84 [Pre-Procedure] O2 Sat by Pulse 95 95 Oximetry O2 Sat by Pulse Oximetry [ Intra-Procedure ] O2 Sat by Pulse Oximetry [Post -Procedure] O2 Sat by Pulse 98 Oximetry [Pre- Procedure] 03/29/19 03/29/19 03/29/19 09:20 09:25 09:30 Temperature Temperature [ 97.3 F L Intra-Procedure ] Temperature [ 97.3 F L Post-Procedure] Temperature [ Pre-Procedure] Pulse Rate Pulse Rate [ 69 Intra-Procedure ] Pulse Rate [ 97 H Post-Procedure] Pulse Rate [Pre -Procedure] Respiratory 18 Rate Respiratory 16 Rate [Intra- Procedure] Respiratory 15 Rate [Post- Procedure] Respiratory Rate [Pre- Procedure] Blood Pressure Blood Pressure 124/63 [Intra- Procedure] Blood Pressure 116/71 [Post-Procedure ] Blood Pressure [Pre-Procedure] O2 Sat by Pulse Oximetry O2 Sat by Pulse 97 Oximetry [ Intra-Procedure ] O2 Sat by Pulse 97 Oximetry [Post -Procedure] O2 Sat by Pulse Oximetry [Pre- Procedure] 03/29/19 03/29/19 09:45 10:00 Temperature Temperature [ Intra-Procedure ] Temperature [ Post-Procedure] Temperature [ Pre-Procedure] Pulse Rate Pulse Rate [ Intra-Procedure ] Pulse Rate [ 64 67 Post-Procedure] Pulse Rate [Pre -Procedure] Respiratory 18 Rate Respiratory Rate [Intra- Procedure] Respiratory 14 14 Rate [Post- Procedure] Respiratory Rate [Pre- Procedure] Blood Pressure Blood Pressure [Intra- Procedure] Blood Pressure 106/60 109/68 [Post-Procedure ] Blood Pressure [Pre-Procedure] O2 Sat by Pulse Oximetry O2 Sat by Pulse Oximetry [ Intra-Procedure ] O2 Sat by Pulse 96 96 Oximetry [Post -Procedure] O2 Sat by Pulse Oximetry [Pre- Procedure] General appearance: Present: no acute distress, well-nourished - EENT Eyes: PERRL, EOM intact ENT: hearing intact, clear oral mucosa Ears: bilateral: normal - Neck Neck: supple, normal ROM - Respiratory Respiratory effort: normal Respiratory: bilateral: CTA - Breasts Breasts: normal - Cardiovascular Heart rate: 80 Rhythm: regular Heart Sounds: Present: S1 & S2. Absent: gallop, rub Extremities: pulses intact, No edema, normal color, Full ROM - Gastrointestinal General gastrointestinal: Present: soft, non-tender, non-distended, normal bowel sounds - Genitourinary Female genitourinary: normal - Integumentary Integumentary: clear, warm, dry - Musculoskeletal Musculoskeletal: 1, strength equal bilaterally - Neurologic Neurologic: moves all extremities - Psychiatric Psychiatric: memory intact, appropriate mood/affect, intact judgment & insight - Labs CBC & Chem 7: 03/28/19 09:12 03/28/19 09:12
--- NOTE | 2019-03-29 13:07 | Discharge Summary ---
Providers - Providers Date of Admission: 03/27/19 23:31 Date of discharge: 03/29/19 Attending physician: JOSIE LOPEZ 03/27/19 22:43 Consult to Physician [CONS] Urgent Comment: Consulting Provider: SEA HAMILTON Physician Instructions: Reason For Exam: seroma, chronic ventral hernia, n,v abd pain 03/28/19 12:31 Consult to Interventional Radiology [CONS] Routine Consulting Provider: DONALD VENEGAS Reason For Exam: subq collection, possible abscess - please drain Place consult to:: yes Notified:: yes Primary care physician: OMER PHILLIPS Hospitalization Condition: Stable Hospital course: Patient with a history of an abdominal wall fluid collection. The patient has had multiple abdominal surgeries including tummy tuck. She complains of hardening in the soft tissues just above the incision line. CT scan was reviewed which reveals a simple fluid collection in the soft tissues. A/p Abdominal wall seroma---Drained--50 cc Intractable nausea and vomiting---resolved cervical cancer---F/u as outpatient GERD diverticulosis Ventral Hernia Plan 1. IR consult-- drainage of abdominal subcutaneous fluid collection---done 2. cultures of fluid obtained from collection---sent 3. prn nausea and pain control 4. Full liquid diet ---Advance 5. Elective hernia repair as an outpatient. Referral given to f/u Dr Hamilton /Dr Drummond Disposition: DC-01 TO HOME OR SELFCARE Core Measure Documentation - Palliative Care Palliative Care/ Comfort Measures: Not Applicable - Core Measures Any of the following diagnoses?: none Exam - Constitutional Vitals: Temp Pulse Resp BP Pulse Ox 97.3 F L 67 14 109/68 96 03/29/19 09:30 03/29/19 10:00 03/29/19 10:00 03/29/19 10:00 03/29/19 10:00 General appearance: Present: no acute distress, well-nourished - EENT Eyes: Present: PERRL ENT: hearing intact, clear oral mucosa - Neck Neck: Present: supple, normal ROM - Respiratory Respiratory effort: normal Respiratory: bilateral: CTA - Cardiovascular Heart Sounds: Present: S1 & S2. Absent: rub, click - Extremities Extremities: pulses symmetrical, No edema Peripheral Pulses: within normal limits - Abdominal General gastrointestinal: Present: soft, non-tender, non-distended, normal bowel sounds Female genitourinary: Present: normal - Integumentary Integumentary: Present: clear, warm, dry - Musculoskeletal Musculoskeletal: gait normal, strength equal bilaterally - Psychiatric Psychiatric: appropriate mood/affect, intact judgment & insight - Neurologic Neurologic: CNII-XII intact, moves all extremities Plan Activity: no restrictions Diet: regular Follow up with: SEA HAMILTON DO [Staff Physician] - 14 Days OMER PHILLIPS MD [Primary Care Provider] - 7 Days
[2019-03-29 13:30] VITALS: BP 105/59
== END 2019-03-29 13:57 | disposition home or self-care (01) | DRG 921 ==
LOC: ED 17:09 → 3A 23:31
PROVIDERS: ADMIT Internal Medicine; ATTEND Internal Medicine
PROC: 0J983ZZ Drainage of Abdomen Subcutaneous Tissue and Fascia, Percutaneous Approach (ICD-10-PCS; principal; 2019-03-29)
DX: L76.34 Postprocedural seroma of skin and subcutaneous tissue following other procedure (principal); E87.6 Hypokalemia; K21.9 Gastro-esophageal reflux disease without esophagitis; F17.200 Nicotine dependence, unspecified, uncomplicated; K57.30 Diverticulosis of large intestine without perforation or abscess without bleeding; K43.9 Ventral hernia without obstruction or gangrene; Y83.8 Other surgical procedures as the cause of abnormal reaction of the patient, or of later complication, without mention of misadventure at the time of the procedure; I10 Essential (primary) hypertension; Z90.49 Acquired absence of other specified parts of digestive tract; Z98.51 Tubal ligation status; Z88.1 Allergy status to other antibiotic agents; Z88.8 Allergy status to other drugs, medicaments and biological substances; Z90.89 Acquired absence of other organs; Z82.49 Family history of ischemic heart disease and other diseases of the circulatory system; Z85.41 Personal history of malignant neoplasm of cervix uteri; Y92.098 Other place in other non-institutional residence as the place of occurrence of the external cause
CPT/HCPCS: 10160; 36415; 74177; 77012; 80048; 80053; 81001; 83735; 85025; 87116; 99406; G0378; J1170; J1200; J2250; J2270; J2405; J2765; J3010; J3480; J7030; J7050; Q9967

== ENCOUNTER 2019-04-20 07:50 | Day surgery (SDC) | payer BC ==
[~2019-04-20 07:50] MED LIST: VANCOMYCIN 1,250 MG in NACL 0.9% 500 ML 500 ML IV NR
--- NOTE | 2019-04-20 08:42 | Anesthesia Day of Surgery ---
Anesthesia Day of Surgery - Day of Surgery Patient Examined: Yes Patient H&P Reviewed: Yes Patient is NPO: Yes Beta Blockers: Yes
--- NOTE | 2019-04-20 08:42 | Anesthesia Consultation ---
Anesthesia Consult and Med Hx Date of service: 04/20/19 - Airway Anesthetic Teeth Evaluation: Poor (reports loose top incisor) ROM Head & Neck: Adequate Mental/Hyoid Distance: Adequate Mallampati Class: Class III Intubation Access Assessment: Possibly Difficult - Pulmonary Exam CTA: Yes - Cardiac Exam Cardiac Exam: RRR - Pre-Operative Health Status ASA Pre-Surgery Classification: ASA2 Proposed Anesthetic Plan: General Nerve Block: TAP - Pulmonary Hx Smoking: Yes (STOPPED 2015 (/2 PPD)) Hx Respiratory Symptoms: No Hx Sleep Apnea: No (SALLY PRE SCREEN HIGH RISK) - Cardiovascular System Hx Hypertension: Yes (took metoprolol today) Hx Heart Attack/AMI: No Hx Percutaneous Transluminal Coronary Angioplasty (PTCA): No Hx Cardia Arrhythmia: No - Central Nervous System CVA: No Hx Back Pain: Yes Hx Psychiatric Problems: No - Gastrointestinal Hx Gastroesophageal Reflux Disease: Yes (controlled; took opemrazole today) - Endocrine Hx Renal Disease: No Hx Liver Disease: No Hx Insulin Dependent Diabetes: No Hx Non-Insulin Dependent Diabetes: No Hx Thyroid Disease: No - Other Systems Hx Cancer: No Hx Obesity: Yes - Additional Comments Anesthesia Medical History Comments: No hx anesthetic complications.
[2019-04-20] MEDS ORDERED: MARCAINE 0.25% INFILTRATI ONE (08:53)
[2019-04-20] MEDS ORDERED: DECADRON ONE ×2 (08:53→09:59)
[2019-04-20] MEDS ORDERED: VANCOMYCIN 1,250 MG in NACL 0.9% 250ML 250 ML IV NR (09:00)
[2019-04-20] MEDS ORDERED: SUBLIMAZE IV PRN (09:00)
[2019-04-20] MEDS ORDERED: NEURONTIN PO NR (09:00)
[2019-04-20] MEDS ORDERED: TRANSDERM-SCOP TD NR (09:00)
[2019-04-20] MEDS ORDERED: LACTATED RINGERS 1,000 ML IV SCH (09:00)
[2019-04-20] MEDS ORDERED: VERSED IV NR (09:00)
[2019-04-20] MEDS ORDERED: ZOFRAN ONE (09:59)
[2019-04-20] MEDS ORDERED: ZEMURON IV ONE (09:59)
[2019-04-20] MEDS ORDERED: TORADOL ONE ×2 (09:59→14:20)
[2019-04-20] MEDS ORDERED: XYLOCAINE MPF 2% ONE (09:59)
[2019-04-20] MEDS ORDERED: SUBLIMAZE ONE (09:59)
[2019-04-20] MEDS ORDERED: DIPRIVAN 10 MG/ML IV ONE (09:59)
[2019-04-20] MEDS ORDERED: NACL 0.9% IR ONE (11:05)
--- NOTE | 2019-04-20 12:47 | Short Stay Summary ---
Short Stay Documentation Date of service: 04/20/19 - History Principal diagnosis: ventral hernia - Allergies and Medications Current Medications: Allergies amoxicillin trihydrate [From Augmentin] Allergy (Verified 03/27/19 12:08) Unknown onion Allergy (Verified 03/27/19 12:08) Anaphylaxis potassium clavulanate [From Augmentin] Allergy (Verified 03/27/19 12:08) Unknown Home Medications Medication Instructions Recorded Confirmed Last Taken Type Metoprolol [Lopressor TAB] 25 mg PO BID 03/27/19 04/20/19 04/20/19 06:00 History Omeprazole 20 mg PO DAILY 03/27/19 04/20/19 04/20/19 06:00 History Simvastatin 20 mg PO DAILY 03/27/19 04/20/19 04/19/19 09:00 History hydroCHLOROthiazide [HCTZ] 25 mg PO QDAY 03/27/19 04/20/19 04/19/19 09:00 History Ibuprofen [Motrin] 800 mg PO Q8HR PRN 04/13/19 04/13/19 Unknown History Active Medications Celecoxib (Celebrex) 200 mg PO PREOP NR Stop: 04/20/19 15:00 Last Admin: 04/20/19 09:05 Dose: 200 mg Documented by: Fentanyl (Sublimaze) 50 mcg IV Q5MIN PRN PRN Reason: Pain , Severe (7-10) Stop: 04/20/19 16:00 Gabapentin (Neurontin) 300 mg PO PREOP NR Stop: 04/20/19 14:00 Last Admin: 04/20/19 09:05 Dose: 300 mg Documented by: Lactated Ringer's (Lactated Ringers) 1,000 mls @ 100 mls/hr IV DIRECT RANCHO Last Admin: 04/20/19 09:05 Dose: 100 mls/hr Documented by: Midazolam HCl (Versed) 2 mg IV PREOP NR Stop: 04/20/19 23:59 Last Admin: 04/20/19 09:09 Dose: 2 mg Documented by: Scopolamine (Transderm-Scop) 1 each TD PREOP NR Stop: 04/20/19 15:00 Last Admin: 04/20/19 09:05 Dose: 1 each Documented by: - Brief post op/procedure progress note Date of procedure: 04/20/19 Pre-op diagnosis: ventral hernia Post-op diagnosis: other (ventral and umbilical hernia) Procedure: robotic assisted ventral and umbilical hernia repair with mesh, lysis of adhesions Anesthesia: GETA, other (JAMIR BLOCK) Findings: 1. adhesions from omentum and small bowel to anterior abdominal wall 2. dense scarring of peritoneum to underlying abdominal wall making creation of preperitoneal space very difficult 3. 2 defects - 1 at umbilicus and 1 immediately to the right of it. Total measuring 4.5 cm x 1.5 cm. Repaired with 11.4cmx15.4 cm bard ventralex mesh Surgeon: SEA HAMILTON Customer Support Representative: JANES FRANKS Estimated blood loss: minimal Pathology: none Condition: stable - Hospital course Hospital course: Pt observed in PACU and discharged to home in stable condition when criteria met - Disposition Condition at discharge: Good Disposition: DC-01 TO HOME OR SELFCARE Short Stay Discharge Plan Activity: other (no heavy lifting. no driving if taking prescription pain medications) Wound: open to air, per your surgeon's advice Additional Instructions: PLEASE SEE PRINTED DISCHARGE INSTRUCTIONS Follow up with: OMER PHILLIPS MD [Primary Care Provider] - 7 Days SEA HAMILTON DO [Staff Physician] - 14 Days Prescriptions: Ibuprofen [Motrin 800 MG tab] 800 mg PO Q8HR #30 tablet HYDROcodone/APAP 5-325 [[place] 5/325] 1 each PO Q6HR PRN #20 tablet PRN Reason: Pain , Severe (7-10)
[2019-04-20 14:06] VITALS: BP 130/76
[2019-04-20] MEDS ORDERED: TORADOL IV ONE (14:26)
--- NOTE | 2019-04-21 18:10 | Operative Report ---
PREOPERATIVE DIAGNOSIS: Ventral hernia. POSTOPERATIVE DIAGNOSIS: Ventral and umbilical hernia. PROCEDURE: Robotic-assisted ventral and umbilical hernia repair with mesh, lysis of adhesions. ANESTHESIA: General endotracheal anesthesia, TAP block. FINDINGS: 1. Adhesions from omentum and small bowel to the anterior abdominal wall. 2. Dense scarring of peritoneum to underlying abdominal wall, making creation of preperitoneal space very difficult. 3. Two defects, 1 at the umbilicus and 1 immediately to the right of it. The total hernia defect space measuring 4.5 cm x 1.5 cm. This was repaired with an 11.4 cm x 15.4 cm Bard Ventralight mesh. SURGEON: Cynthia Galvan DO CISTERN ROOM WORKING SUPERVISOR: Jimbo Marroquin MD. ESTIMATED BLOOD LOSS: Minimal. PATHOLOGY: None. CONDITION DISPOSITION: The patient is stable to PACU. HISTORY OF PRESENT ILLNESS AND INDICATION: The patient is a 54-year-old female who was seen in the hospital several weeks ago for abdominal pain. She was found to have a seroma involving a prior tummy tuck. She was also noted to have a hernia, which was being worked up for repair. The patient underwent drainage of the seroma to ensure that there was no infection and all cultures were negative. The patient presented back to the office for evaluation for hernia repair. Upon physical exam, the patient had a 1-cm umbilical hernia defect, which was reducible as well as a possible periumbilical defect to the right, which was also reducible. There were no skin changes or significant tenderness to palpation; however, repair was recommended. All risks, benefits and alternatives to surgery were discussed with the patient and questions answered. Consent was signed. Of note, the patient was advised that the seroma related to her prior abdominal surgery could return and would be unrelated to the hernia repair. She understood. PROCEDURE IN DETAIL: The patient was identified in the preoperative area and taken back to the operating room and placed on the operating table in supine position. After anesthesia was induced, a Huang catheter was sterilely placed by the circulating nurse. Bilateral arms were tucked and all bony prominences padded. The patient was placed in very mild reverse jackknife position. The abdomen was prepped and draped in the usual sterile fashion. Timeout was performed. A jeevan incision was made in the left upper quadrant, through which a Veress needle was inserted. The Veress needle position was confirmed using the saline drop test. The abdomen was insufflated to 15 mmHg. A 5-mm incision was then made in the right upper quadrant, through which a 5-mm Optiview trocar was placed. The abdomen was inspected. There was no underlying injury to any of the abdominal structures. The Veress needle was identified and there was no injury along the tract. The Veress needle was removed. Upon inspection of the abdomen, there was chronic scarring of the abdominal wall along with adhesions from the omentum and small bowel to the abdominal wall in the pelvic or in the lower abdominal region. The area of the umbilical hernia was identified and there was also chronically scarred omentum to this area. An additional 12-mm balloon trocar was placed in the right lateral abdomen and an 8-mm robotic trocar in the right lower quadrant under direct visualization. A 5-mm right upper quadrant trocar was replaced with an 8-mm robotic trocar under direct visualization. A Ray-Thuan was placed into the abdomen and the robot was then docked. A monopolar scissor was placed in arm #1 and a fenestrated bipolar in arm #2. The surgeon was then moved to the console. I first started by taking down the omental adhesions to the area of the hernia defects. This was done using a combination of blunt dissection and electrocautery. Once the hernia defects were clearly identified, 2 distinct defects were seen, a defect at the umbilicus as well as a defect immediately to the right of this. The total defect space measuring 4.5 cm x 1.5 cm. The small bowel adhesions were close to the defect and needed to be taking down in order to facilitate mesh placement. Therefore, a very meticulous dissection was performed in which the small bowel loops were carefully dissected free from the anterior abdominal wall using a combination of sharp dissection and blunt dissection. Once the small bowel was freed from the anterior abdominal wall, it was carefully inspected and no injury was identified. At this point, I attempted to create a preperitoneal flap starting closest to me to the right of the hernia defect. The peritoneum was scored and the preperitoneal space was attempted to be dissected. Due to chronic scarring and the patient's history of multiple abdominal surgeries, the peritoneum was densely scarred to the posterior fascia and a clear plane could not be identified. There was also some bleeding from the underlying muscle and therefore, this approach was abandoned. Hemostasis was carefully ensured and I decided to perform an intraperitoneal placement of mesh. An 11 x 15.4 cm Bard Ventralight mesh was chosen to fix the defect. This was placed into the abdomen along with suture material. The hernia defects were closed in a running fashion using 0 V-Loc suture. The mesh was then placed at the center of the defect with adequate overlay. The mesh was sutured in circumferentially using 2-0 V-Loc suture. The mesh was seen to lay flat and please note that the insufflation was turned down to 8 mmHg during the repair. Once the mesh was sutured in, the robot was undocked and the remainder of the procedure was performed laparoscopically. All sharps and suture material along with the Ray-Thuan were removed. The small bowel that was adhesed to the anterior abdominal wall was once again inspected and there was no injury identified. Hemostasis was carefully ensured. The 12 mm port was then removed and the fascia closed with 0 Vicryl interrupted suture using Clint-Maverick device. The abdomen was then desufflated and the remaining ports were removed. The skin was closed with 4-0 Monocryl subcuticular stitches and skin glue. A 4 x 4 gauze was placed to the right of the umbilicus and secured with Tegaderm. An abdominal binder was applied. At the end of the case, all sponge, instrument, sharp counts were correct x 2. The Huang catheter was removed. The patient was awoken from anesthesia, extubated, and taken to PACU in stable condition. JOB# [id number] PHILIP/DAVID
== END 2019-04-20 16:15 | disposition home or self-care (01) ==
LOC: OR 07:50
PROVIDERS: ATTEND Surgery
DX: K42.9 Umbilical hernia without obstruction or gangrene (principal); K43.9 Ventral hernia without obstruction or gangrene; G43.709 Chronic migraine without aura, not intractable, without status migrainosus; E78.00 Pure hypercholesterolemia, unspecified; I10 Essential (primary) hypertension; K21.9 Gastro-esophageal reflux disease without esophagitis; E66.9 Obesity, unspecified; Z68.30 Body mass index [BMI] 30.0-30.9, adult; Z80.1 Family history of malignant neoplasm of trachea, bronchus and lung; Z79.899 Other long term (current) drug therapy; Z87.891 Personal history of nicotine dependence; Z98.49 Cataract extraction status, unspecified eye; Z90.49 Acquired absence of other specified parts of digestive tract; Z80.8 Family history of malignant neoplasm of other organs or systems; Z98.890 Other specified postprocedural states; Z98.51 Tubal ligation status; Z85.41 Personal history of malignant neoplasm of cervix uteri; Z88.8 Allergy status to other drugs, medicaments and biological substances
CPT/HCPCS: 49652; 64488; 82803; C1781; J1100; J1885; J2250; J2405; J2704; J3010; J3370; J7040; J7050; J7120; S2900; 64450

== ENCOUNTER 2019-06-16 10:44 | Outpatient (CLI) | payer BC ==
--- NOTE | 2019-06-16 11:53 | Cat Scan Report ---
CT ABDOMEN AND PELVIS WITHOUT CONTRAST HISTORY: L76.34)Postprocedural seroma of skin and subcutaneous ti COMPARISON: 03/21/2019 and 03/29/2019 TECHNIQUE: Routine abdominal and pelvic CT exam performed Note: All CT scans at this location are per formed using CT dose reduction employed for ALARA by means of automated exposure control. CONTRAST: None. FINDINGS: CT ABDOMEN: Lung Bases: Clear. Liver: Borderline large liver with right lobe measuring 17.6 cm in length. Mild diffuse decreased den sity of the liver (measuring 31 Hounsfield units in density). No liver mass. Biliary: Normal bile ducts status post cholecystectomy. Spleen: No significant abnormality. Unenlarged. Pancreas: No significant abnormality. Adrenals: No significant abnormality. Kidneys: No significant abnormality. Lymphatics: No lymphadenopathy. Vasculature: No significant abnormality. Bowel/Peritoneum: No significant abnormality. No free air. No free fluid. Normal appendix. Additional findings: A small residual seroma of the infraumbilical anterior abdominal wall measuring 1.4 cm AP thickness by 9.1 cm transverse dimension by 6.5 cm craniocaudal dimension. No air within th e seroma or in the anterior abdominal wall. CT PELVIC: : No significant abnormality. Normal uterus and right ovary. A left ovary is not well-demonstrated. A normal anastomosis of the sigmoid colon. Osseous Structures: No significant abnormality. Additional Findings: None IMPRESSION: 1. A small residual infraumbilical anterior abdominal wall seroma. 2. No ventral hernia. 3. Status post cholecystectomy and appendectomy. 4. Borderline large liver and decreased liver density consistent with hepatic steatosis. 5. Normal sigmoid colon anastomosis. Signer Name: Mirza Zavaleta MD Signed: 06/16/2019 11:49 AM Workstation Name: [id number]
== END 2019-06-16 10:45 | disposition home or self-care (01) ==
LOC: CT 10:44
PROVIDERS: ATTEND Surgery
DX: L76.34 Postprocedural seroma of skin and subcutaneous tissue following other procedure (principal); E78.00 Pure hypercholesterolemia, unspecified; I10 Essential (primary) hypertension; K21.9 Gastro-esophageal reflux disease without esophagitis; E66.9 Obesity, unspecified; Z90.89 Acquired absence of other organs
CPT/HCPCS: 74176

== ENCOUNTER 2019-07-12 08:15 | Day surgery (SDC) | payer BC ==
[2019-07-12 09:19] LABS: Basophils % (Auto) 0.7 % (0.0-1.8); Eosinophils # (Auto) 0.2 K/mm3 (0.0-0.4); Eosinophils % (Auto) 2.4 % (0.0-4.3); Hematocrit 39.7 % (30.3-42.9); Hemoglobin 13.8 gm/dl (10.1-14.3); Lymphocytes % (Auto) 30.1 % (13.4-35.0); Mean Corpuscular HGB Conc 35 % (30-34); Mean Corpuscular Volume 94 fl (79-97); Monocytes # (Auto) 0.7 K/mm3 (0.0-0.8); Monocytes % (Auto) 10.8 % (0.0-7.3); Platelet Count 288 K/mm3 (140-440); Red Blood Count 4.24 M/mm3 (3.65-5.03); Red Cell Distribution Width 13.3 % (13.2-15.2)
[2019-07-12] MEDS ORDERED: DILAUDID ONE ×2 (10:11→11:43)
[2019-07-12] MEDS ORDERED: ZOFRAN ONE (10:11)
[2019-07-12] MEDS ORDERED: ZOFRAN IV ONE ×2 (10:11→13:33)
[2019-07-12 10:25] LABS: INR 0.86 (0.87-1.13); Partial Thromboplastin Time 21.5 Sec. (24.2-36.6)
[2019-07-12] MEDS ORDERED: DILAUDID IV ONE ×2 (11:11→11:50)
--- NOTE | 2019-07-12 13:32 | Cat Scan Report ---
CT-GUIDED DRAIN CYST/ABSCESS INDICATION : Anterior pelvic wall seroma. COMPARISON: CT abdomen pelvis dated 06/16/2019 PROCEDURE: The risks (including but not limited to bleeding and infection) and benefits were explain ed to the patient and informed consent was obtained. All CT scans at this location are performed usi ng CT dose reduction for ALARA by means of automated exposure control. A time out procedure was performed. The procedure site was prepped and draped in the usual sterile f ashion and lidocaine was used for local anesthesia. Anxiolysis was accomplished with IV Dilaudid and Zofran. Using CT guidance, an introducer needle was advanced to the central portions of an anterior pelvic wa ll fluid collection measuring up to 9.1 cm in diameter and 1.4 cm in thickness. A wire was passed thr ough the introducer needle. 6 and 8 Urdu dilators were used. An 8 Urdu pigtail catheter was inser sukh into the collection over the wire. Only a small amount of serosanguineous fluid could be aspirate d. The internal fluid appeared to be somewhat gelatinous. The cavity was flushed with sterile saline and aspirated 3 times. The pigtail catheter was secured to the patient's right lateral abdominal wall and a SYDNEE drain was attached. The patient tolerated the procedure well with no complications. IMPRESSION: Successful CT-guided drain placement in the anterior pelvic wall seroma. Signer Name: Nick Patton Jr, MD Signed: 07/12/2019 1:28 PM Workstation Name: [id number]
[2019-07-12 13:53] VITALS: BP 115/66
== END 2019-07-12 14:00 | disposition home or self-care (01) ==
LOC: CATHLABREC 08:15 → EDSTATUS 08:30 → CATHLABREC 14:00
PROVIDERS: ATTEND Surgery
DX: L76.34 Postprocedural seroma of skin and subcutaneous tissue following other procedure (principal); F17.210 Nicotine dependence, cigarettes, uncomplicated; G43.709 Chronic migraine without aura, not intractable, without status migrainosus; E78.00 Pure hypercholesterolemia, unspecified; I10 Essential (primary) hypertension; K21.9 Gastro-esophageal reflux disease without esophagitis; E66.9 Obesity, unspecified; Z98.51 Tubal ligation status; Z80.1 Family history of malignant neoplasm of trachea, bronchus and lung; Z79.899 Other long term (current) drug therapy; Z88.6 Allergy status to analgesic agent; Z98.49 Cataract extraction status, unspecified eye; Z90.49 Acquired absence of other specified parts of digestive tract; Z68.36 Body mass index [BMI] 36.0-36.9, adult; Z80.8 Family history of malignant neoplasm of other organs or systems; Z98.890 Other specified postprocedural states; Z85.89 Personal history of malignant neoplasm of other organs and systems; Z72.89 Other problems related to lifestyle; Z88.8 Allergy status to other drugs, medicaments and biological substances
CPT/HCPCS: 36415; 49406; 82962; 85025; 85610; 85730; 96374; 96375; 96376; C1769; J1170; J2405; 10160; 77012

== ENCOUNTER 2019-08-07 10:05 | Outpatient (CLI) | payer BC ==
[2019-08-07] MEDS ORDERED: LIDOCAINE (4%) 40 MG/ML TOPICAL SOLN 50 ML BOTTLE TP ONE (11:00)
== END 2019-08-07 10:06 | disposition home or self-care (01) ==
LOC: WOUND 10:05
PROVIDERS: ATTEND Surgery
DX: T81.89XA Other complications of procedures, not elsewhere classified, initial encounter (principal); K21.9 Gastro-esophageal reflux disease without esophagitis; G54.0 Brachial plexus disorders; I10 Essential (primary) hypertension; Z87.891 Personal history of nicotine dependence; Y83.8 Other surgical procedures as the cause of abnormal reaction of the patient, or of later complication, without mention of misadventure at the time of the procedure; Y92.89 Other specified places as the place of occurrence of the external cause
CPT/HCPCS: 11043; 97605; G0463; 99214

== ENCOUNTER 2019-08-10 13:10 | Outpatient (CLI) | payer BC | END 2019-08-10 13:11 | disposition home or self-care (01) | LOC: WOUND 13:10 | PROVIDERS: ATTEND Surgery | DX: T81.89XD Other complications of procedures, not elsewhere classified, subsequent encounter (principal); K21.9 Gastro-esophageal reflux disease without esophagitis; G54.0 Brachial plexus disorders; I10 Essential (primary) hypertension; Z87.891 Personal history of nicotine dependence; Y83.8 Other surgical procedures as the cause of abnormal reaction of the patient, or of later complication, without mention of misadventure at the time of the procedure | CPT/HCPCS: 97605 ==

== ENCOUNTER 2019-08-14 10:00 | Outpatient (CLI) | payer BC ==
[2019-08-14] MEDS ORDERED: LIDOCAINE (4%) 40 MG/ML TOPICAL SOLN 50 ML BOTTLE TP ONE (11:26)
== END 2019-08-14 10:01 | disposition home or self-care (01) ==
LOC: WOUND 10:00
PROVIDERS: ATTEND Surgery
DX: T81.89XD Other complications of procedures, not elsewhere classified, subsequent encounter (principal); K21.9 Gastro-esophageal reflux disease without esophagitis; G54.0 Brachial plexus disorders; I10 Essential (primary) hypertension; Z87.891 Personal history of nicotine dependence; Y83.8 Other surgical procedures as the cause of abnormal reaction of the patient, or of later complication, without mention of misadventure at the time of the procedure
CPT/HCPCS: 97605

== ENCOUNTER 2019-08-17 12:57 | Outpatient (CLI) | payer BC | END 2019-08-17 12:58 | disposition home or self-care (01) | LOC: WOUND 12:57 | PROVIDERS: ATTEND Surgery | DX: T81.89XD Other complications of procedures, not elsewhere classified, subsequent encounter (principal); K21.9 Gastro-esophageal reflux disease without esophagitis; G54.0 Brachial plexus disorders; I10 Essential (primary) hypertension; Z87.891 Personal history of nicotine dependence; Y83.8 Other surgical procedures as the cause of abnormal reaction of the patient, or of later complication, without mention of misadventure at the time of the procedure | CPT/HCPCS: 97605 ==

== ENCOUNTER 2019-08-21 09:53 | Outpatient (CLI) | payer BC ==
[2019-08-21] MEDS ORDERED: LIDOCAINE (4%) 40 MG/ML TOPICAL SOLN 50 ML BOTTLE TP ONE (10:25)
== END 2019-08-21 09:54 | disposition home or self-care (01) ==
LOC: WOUND 09:53
PROVIDERS: ATTEND Surgery
DX: T81.89XD Other complications of procedures, not elsewhere classified, subsequent encounter (principal); I10 Essential (primary) hypertension; K21.9 Gastro-esophageal reflux disease without esophagitis; Z87.891 Personal history of nicotine dependence; Y83.8 Other surgical procedures as the cause of abnormal reaction of the patient, or of later complication, without mention of misadventure at the time of the procedure
CPT/HCPCS: 99214; G0463

== ENCOUNTER 2019-08-28 10:02 | Outpatient (CLI) | payer BC ==
[2019-08-28] MEDS ORDERED: SILVER NITRATE APPLICATOR 1 EA TP ONE (10:09)
[2019-08-28] MEDS ORDERED: LIDOCAINE (4%) 40 MG/ML TOPICAL SOLN 50 ML BOTTLE TP ONE (10:09)
== END 2019-08-28 10:03 | disposition home or self-care (01) ==
LOC: WOUND 10:02
PROVIDERS: ATTEND Surgery
DX: T81.89XD Other complications of procedures, not elsewhere classified, subsequent encounter (principal); I10 Essential (primary) hypertension; K21.9 Gastro-esophageal reflux disease without esophagitis; Z87.891 Personal history of nicotine dependence; Y83.8 Other surgical procedures as the cause of abnormal reaction of the patient, or of later complication, without mention of misadventure at the time of the procedure

== ENCOUNTER 2019-09-18 10:00 | Outpatient (CLI) | payer BC | END 2019-09-18 10:01 | disposition home or self-care (01) | LOC: WOUND 10:00 | PROVIDERS: ATTEND Surgery | DX: T81.89XD Other complications of procedures, not elsewhere classified, subsequent encounter (principal); I10 Essential (primary) hypertension; K21.9 Gastro-esophageal reflux disease without esophagitis; Z87.891 Personal history of nicotine dependence; Y83.8 Other surgical procedures as the cause of abnormal reaction of the patient, or of later complication, without mention of misadventure at the time of the procedure | CPT/HCPCS: 99213; G0463 ==